=== PATIENT | male | born 1985 ===

== ENCOUNTER 2018-06-25 10:23 | Emergency (ER) | payer OTHER ==
[2018-06-25 10:50] VITALS: BP 143/88; PULSE 99; RESP 18; TEMP 97.8; O2SAT 99
--- NOTE | 2018-06-25 11:10 | ED PDOC ---
Arrival/HPI - General Chief Complaint: GI Problem Time Seen by Provider: 06/25/18 10:56 Historian: Patient - History of Present Illness Time/Duration: Other (5 days) Symptom Onset: Gradual Symptom Course: Worsening Quality: Aching Severity Level: Moderate Associated Symptoms (Text): 06/25/18 11:07 Patient complains of approximately a five-day history of rectal pain and swelling. It began after he was constipated and pushing to have a bowel movement. There is no abdominal pain nausea vomiting or diarrhea. He is no longer constipated. No GI bleed. No genitourinary symptoms.. He has never experienced this previously. He used some [id number] cream with no improvement. No fever or chills. Past Medical History - Psychiatric Hx Substance Use: No Family/Social History - Physician Review Nursing Documentation Reviewed: Yes Family/Social History: Unknown Family HX Smoking Status: Light Smoker < 10 Cigarettes Daily Hx Alcohol Use: No Hx Substance Use: No Allergies/Home Meds Allergies/Adverse Reactions: Allergies No Known Allergies Allergy (Verified 06/25/18 10:50) Review of Systems - Physician Review All systems were reviewed & negative as marked: Yes - Review of Systems Constitutional: Normal Respiratory: Normal Cardiovascular: Normal Gastrointestinal: Normal. absent: Abdominal Pain, Stool Changes, Constipation, Diarrhea, Nausea, Vomiting, Hematochezia, Hematemesis, Anorexia Genitourinary Male: absent: Dysuria, Frequency, Hematuria Physical Exam Vital Signs Temp Pulse Resp BP Pulse Ox 06/25/18 10:48 97.8 F 99 H 18 143/88 99 Temperature: Afebrile Blood Pressure: Normal Pulse: Regular Respiratory Rate: Normal Appearance: Positive for: Well-Appearing, Non-Toxic, Uncomfortable Pain Distress: Mild Mental Status: Positive for: Alert and Oriented X 3 - Systems Exam Abdomen: No: Tenderness, Distention, Peritoneal Signs, Rebound, Guarding Rectal: Present: Rectal Tenderness, Hemorrhoids (Nonthrombosed nonbleeding hemorrhoids at 9:00), Normal Rectal Tone. No: Occult Blood, Gross Blood, Melena, Fissures, Nodule/Mass/Lesions Disposition/Present on Arrival - Present on Arrival Any Indicators Present on Arrival: No History of DVT/PE: No History of Uncontrolled Diabetes: No Urinary Catheter: No History of Decub. Ulcer: No History Surgical Site Infection Following: None - Disposition Have Diagnosis and Disposition been Completed?: Yes Diagnosis: Hemorrhoids Disposition: HOME/ ROUTINE Disposition Time: 11:10 Patient Plan: Discharge Patient Problems: Current Active Problems Problem Status Onset Hemorrhoids Acute Condition: GOOD Discharge Instructions (ExitCare): Hemorrhoids Additional Instructions: Sitz baths. Keep bowels soft. Follow-up with surgeon. Follow up in ER as needed. Prescriptions: Hard Fat/Phenylephrine [place] [Hemorrhoidal 88.7%-0.25%] 1 sup HI BID #14 sup Hydrocortisone 2.5% (Rectal) [Anusol-HC] 30 applic HI BID #30 tube Tramadol HCl [Ultram] 50 mg PO Q6 PRN #14 tab PRN Reason: Pain Referrals: FAMILY PROVIDER,NO [Primary Care Provider] - Follow up with primary Josue Rea MD [Staff Provider] - Follow up with primary Forms: [employer] ([place])
== END 2018-06-25 11:26 | disposition home or self-care (01) ==
LOC: ED 10:23
DX: K64.9 Unspecified hemorrhoids (principal); F17.210 Nicotine dependence, cigarettes, uncomplicated

== ENCOUNTER 2018-06-28 10:57 | Emergency (ER) | payer OTHER ==
--- NOTE | 2018-06-28 11:18 | ED PDOC ---
Arrival/HPI - General Historian: Patient EM Caveat: Other - Critical Care Critical Care Minutes: 30 minutes - History of Present Illness Narrative History of Present Illness (Text): 06/28/18 11:29 32 year old male with a past medical history of asthma presents to emergency department with a complaint of rectal pain for the past two days. Patient reports the pain as throbbing in nature that improves with sitz baths. Patient was recently seen on 06/25/18 for the same complaint and was diagnosed with non thrombosed hemorrhoid. Patient was prescribed Tramadol and sitz baths and discharged with instructions to follow up with Dr. Rea. Patient attempted to visit today, however was unable to find the correct office. Patient denies any changes in stool color, fever, nausea/vomiting, hematochezia, shortness of breath, chills, nausea, vomiting, syncopal episodes, or any other complaints. PMD: Denies Meds: Tramadol Surgical history: Denies Allergies: Denies Hospitalization history: Denies 06/28/18 12:18 Time/Duration: < week Symptom Onset: Gradual Symptom Course: Unchanged Quality: Throbbing Severity Level: 5 Activities at Onset: Other Context: Sitting Associated Symptoms (Text): 06/28/18 12:06 Subjective fevers <Rafael Coe - Last Filed: 06/28/18 12:40> <Aspen Barnes - Last Filed: 06/28/18 13:06> - General Time Seen by Provider: 06/28/18 11:13 Past Medical History - Provider Review Nursing Documentation Reviewed: Yes - Travel History Have you recently traveled outside [place] w/in the past 3 mons?: No - Cardiac Hx Cardiac Disorders: No - Pulmonary Hx Respiratory Disorders: Yes - Neurological Hx Neurological Disorder: No - HEENT Hx HEENT Disorder: No - Renal Hx Renal Disorder: No - Endocrine/Metabolic Hx Endocrine Disorders: No - Hematological/Oncological Hx Blood Disorders: No - Integumentary Hx Dermatological Disorder: No - Musculoskeletal/Rheumatological Hx Musculoskeletal Disorders: No - Gastrointestinal Hx Gastrointestinal Disorders: No - Psychiatric Hx Substance Use: No <Rafael Coe - Last Filed: 06/28/18 12:40> Family/Social History - Physician Review Nursing Documentation Reviewed: Yes Family/Social History: No Known Family HX Smoking Status: Light Smoker < 10 Cigarettes Daily Hx Alcohol Use: No Hx Substance Use: No <Rafael Coe - Last Filed: 06/28/18 12:40> Allergies/Home Meds <Rafael Coe - Last Filed: 06/28/18 12:40> <Aspen Barnes - Last Filed: 06/28/18 13:06> Allergies/Adverse Reactions: Allergies No Known Allergies Allergy (Verified 06/25/18 10:50) Review of Systems - Physician Review All systems were reviewed & negative as marked: Yes - Review of Systems Constitutional: Normal. absent: Weight Change, Fevers Eyes: Normal. absent: Photophobia ENT: Normal. absent: Tinnitus, Epistaxis Respiratory: Normal. absent: Cough, Sputum Cardiovascular: Normal. absent: Palpitations, Syncope Gastrointestinal: Normal. absent: Abdominal Pain, Vomiting, Food Intolerance Genitourinary Male: Normal. absent: Dysuria, Frequency Musculoskeletal: Normal. absent: Arthralgias Skin: Skin Lesions (swelling above rectum) Neurological: Normal. absent: Headache, Dizziness, Facial Droop Endocrine: Normal Hemo/Lymphatic: Normal Psychiatric: Normal <Rafael Coe - Last Filed: 06/28/18 12:40> Physical Exam Vital Signs Reviewed: Yes Temperature: Afebrile Blood Pressure: Normal Pulse: Regular Respiratory Rate: Normal Appearance: Positive for: Well-Appearing, Non-Toxic, Comfortable Pain Distress: Moderate Mental Status: Positive for: Alert and Oriented X 3 - Systems Exam Head: Present: Normocephalic Pupils: Present: PERRL Extroacular Muscles: Present: EOMI. No: Gaze Palsy Conjunctiva: Present: Normal. No: Injected Mouth: Present: Moist Mucous Membranes. No: Dry, Normal Teeth Pharnyx: No: ERYTHEMA, EXUDATE, Uvular Deviation Neck: Present: Normal Range of Motion. No: Meningeal Signs, JVD, Lymphadenopathy Respiratory/Chest: Present: Clear to Auscultation, Good Air Exchange. No: Respiratory Distress, Accessory Muscle Use, Wheezes, Decreased Breath Sounds Cardiovascular: Present: Murmurs, Normal S1, S2 Abdomen: Present: Normal Bowel Sounds. No: McBurney's Point Tender Rectal: Present: Other (Fluctulant, erythematous abscess above the rectum in the gluteal fold. No rectal involvement. Pain upon palpation.). No: Hemorrhoids Back: No: CVA Tenderness, Pain with Leg Raise Upper Extremity: Present: Normal Inspection. No: Cyanosis, Edema, Erythema, Capillary Refill < 2s Lower Extremity: Present: Normal Inspection. No: Garfield's Sign, Temperature Abnormalties Skin: Present: Dry, Normal Color. No: Cold, Pale Lymphatic: No: Cervical Adenopathy, Axillary Adenopathy Psychiatric: Present: Oriented x 3, Normal Insight. No: Normal Mood, Anxious, Homicidal Ideation <Rafael Coe - Last Filed: 06/28/18 12:40> Vital Signs Temp Pulse Resp BP Pulse Ox 06/28/18 11:39 98.2 F 98 H 18 139/73 100 <Aspen Barnes - Last Filed: 06/28/18 13:06> Medical Decision Making ED Course and Treatment: 06/28/18 11:58 Patient was abscess with some surrounding cellulitis. No rectal involvement Incision and Drainage with Packing -12 cc of prurulent drainage was taken from the abscess, Area packed -Patient tolerated procedure well -Patient reports an improvement in symptoms after procedure. 06/28/18 12:03 Patient reports an improvement in pain 06/28/18 12:20 Re-evaluation Time: 12:05 Reassessment Condition: Re-examined (:) - Critical Care Critical Care Minutes: 30 minutes - Lab Interpretations I have reviewed the lab results: Yes <Rafael Coe - Last Filed: 06/28/18 12:40> ED Course and Treatment: 06/28/18 12:21 Patient Seen with Resident: In agreement with resident note which contains more details about the patient. Patient seen and evaluated with resident. Came up with plan and treatment together. Impression: 32 year old male who presents to the emergency department with complaints of rectal pain fore the past 2 days. Exam shows subcutaneous abscess. No rectal involvement. Fluctuant area with no surrounding cellulitis. Performed I&D with purulent drainage. patient reported immediate relief of pain. <Aspen Barnes - Last Filed: 06/28/18 13:06> - Scribe Statement The provider has reviewed the documentation as recorded by the Ginette Soto Provider Scribe Attestation: All medical record entries made by the Scribe were at my direction and personally dictated by me. I have reviewed the chart and agree that the record accurately reflects my personal performance of the history, physical exam, medical decision making, and the department course for this patient. I have also personally directed, reviewed, and agree with the discharge instructions and disposition. <Aspen Barnes - Last Filed: 06/28/18 13:06> Disposition/Present on Arrival - Present on Arrival Any Indicators Present on Arrival: No History of DVT/PE: No History of Uncontrolled Diabetes: No Urinary Catheter: No History of Decub. Ulcer: No History Surgical Site Infection Following: None - Disposition Have Diagnosis and Disposition been Completed?: Yes Disposition Time: 12:05 Patient Plan: Discharge <Rafael Coe - Last Filed: 06/28/18 12:40> <Aspen Barnes - Last Filed: 06/28/18 13:06> - Disposition Diagnosis: Marielle-rectal abscess Disposition: HOME/ ROUTINE Condition: GOOD Discharge Instructions (ExitCare): Anal Abscess and Fistula Additional Instructions: Patient to follow up with PMD within 2 days upon discharge. Patient take antiobiotics are prescribed. Patient to keep wound dry and clean. Return to hospital for any new or worsening symptoms. Prescriptions: Amoxicillin/Clavulanate [Augmentin 875 MG-125 MG] 1 tab PO BID #20 tab
[2018-06-28 11:31] VITALS: BMI 29.7
[2018-06-28 11:43] VITALS: RESP 18; O2SAT 100
[2018-06-28] MEDS ORDERED: Lidocaine 1% 5ml Abboject ONE (11:45)
[2018-06-28 12:27] VITALS: BP 134/68; PULSE 92; TEMP 98.1
== END 2018-06-28 12:15 | disposition home or self-care (01) ==
LOC: ED 10:57
DX: K61.1 Rectal abscess (principal); F17.210 Nicotine dependence, cigarettes, uncomplicated